=== PATIENT | male | born 1995 | race Caucasian/White ===

== ENCOUNTER 2018-08-31 19:52 | Inpatient (IN) | payer OTHER ==
[~2018-08-31] VITALS: Ht 170.2 cm; Wt 99.3 kg
[~2018-08-31 19:52] MED LIST changes: -ARMO250T4 PO; -CETI10TA22 PO; -CIPR500T94 PO; -FLUO40CA2 PO; -IOHEXOL 240 MG/ML 50ML VIAL. ONE; -IOHEXOL 240 MG/ML 50ML VIAL. PO ONE; -IOHEXOL 300 MG/ML 75 ML VIAL. IV ONE; -MELA3TAB2 PO; -METR500T PO; -ONDA4TAB7 PO; -PANT20TA58 PO; -RIZA10TA PO; -TOPI25TA7 PO; -TOPI50TA8 PO
[2018-08-31 20:15] VITALS: BP 136/62
[2018-08-31] MEDS ORDERED: PANT20TA58 PO (20:49)
[2018-08-31] MEDS ORDERED: TOPI25TA7 PO (20:49)
[2018-08-31] MEDS ORDERED: RIZA10TA PO (20:49)
[2018-08-31] MEDS ORDERED: CETI10TA22 PO (20:49)
[2018-08-31] MEDS ORDERED: TOPI50TA8 PO (20:49)
[2018-08-31] MEDS ORDERED: ONDA4TAB7 PO (20:49)
[2018-08-31] MEDS ORDERED: FLUO40CA2 PO (20:49)
[2018-08-31] MEDS ORDERED: ARMO250T4 PO (20:49)
[2018-08-31] MEDS ORDERED: MELA3TAB2 PO (21:04)
[2018-08-31] MEDS ORDERED: ONDANSETRON PF 4 MG/2 ML VIAL. IV PRN (21:30)
[2018-08-31] MEDS: IV NORMAL SALINE 1,000ML 1,000 ML IV SCH (21:43)
[2018-08-31] MEDS ORDERED: MELATONIN 3 MG TABLET PO PRN (22:00)
[2018-08-31] MEDS ORDERED: ONDANSETRON ODT 4 MG TAB.RAPDIS PO PRN (22:15)
[2018-08-31] MEDS ORDERED: NON FORMULARY ITEM (Ondansetron (Zofran Odt) 8 MG) PO PRN (22:15)
[2018-08-31] MEDS ORDERED: SUMAtriptan SUCCINATE 50 MG TABLET PO PRN (22:15)
[2018-08-31] MEDS ORDERED: ZOLPIDEM 5 MG TABLET. PO PRN (22:30)
[2018-08-31 22:31] LABS: INFLUENZA A PATIENT NEGATIVE (NEGATIVE); INFLUENZA B PATIENT NEGATIVE (NEGATIVE)
[2018-08-31 23:20] VITALS: BP 126/63
[2018-09-01 00:14] LABS: BACTERIA,URINE 0 /HPF (0-FEW); BILIRUBIN,URINE NEG (NEG); CLARITY,URINE CLEAR; COLOR,URINE YELLOW; GLUCOSE,URINE NEG (NEG); NITRITE,URINE NEG (NEG); RBC,URINE 0 /HPF (0-2); SQUAMOUS EPITHELIAL CELL,UR OCC /LPF; UROBILINOGEN,URINE 0.2 mg/dL (0.2 mg/dL); WBC,URINE RARE /HPF (0-4)
[2018-09-01] MEDS ORDERED: CIPROFLOXACIN HCL 500 MG TABLET PO SCH ×2 (00:15→06:00)
[2018-09-01 00:30] LABS: BASO # 0.1 x10^3/uL (0.0-0.2); BASO % 1 % (0-3); EOS # 0.1 x10^3/uL (0.0-0.7); EOS % 1 % (0-3); HEMATOCRIT 41.4 % (39.0-53.0); HEMOGLOBIN 14.4 g/dL (13.0-17.5); LYMPH # 1.7 x10^3/uL (1.0-4.8); LYMPH % 12 % (24-48); MEAN CORPUSCULAR HEMOGLOBIN 31 pg (25-35); MEAN CORPUSCULAR HGB CONC 35 g/dL (31-37); MEAN CORPUSCULAR VOLUME 88 fL (79-100); MONO % 7 % (0-9); NEUT # 10.9 x10^3uL (1.8-7.7); NEUT % 80 % (31-73); PLATELET COUNT 284 x10^3/uL (140-400); RED BLOOD COUNT 4.73 x10^6/uL (4.30-5.70); RED CELL DISTRIBUTION WIDTH 12.8 % (11.5-14.5); WHITE BLOOD COUNT 13.8 x10^3/uL (4.0-11.0)
[2018-09-01] MEDS: TOPIRAMATE 25 MG TABLET. PO SCH ×3 (00:37→21:09)
[2018-09-01] MEDS: ACETAMINOPHEN 500 MG TABLET PO PRN ×3 (00:37→14:55)
[2018-09-01 00:39] LABS: C REACTIVE PROTEIN 53.9 mg/L (0-3.3); GFR 92.6; POTASSIUM 3.5 mmol/L (3.5-5.1)
[2018-09-01] MEDS: IV NORMAL SALINE 1,000ML 1,000 ML IV SCH ×3 (05:05→17:30)
[2018-09-01 05:06] VITALS: BP 130/81
[2018-09-01 06:17] LABS: AMYLASE 49 U/L (25-115); LIPASE 163 U/L (73-393)
[2018-09-01] MEDS: CETIRIZINE HCL 10 MG TABLET PO SCH (08:05)
[2018-09-01] MEDS: FLUoxetine HCL 20 MG CAPSULE PO SCH (08:05)
[2018-09-01] MEDS: PANTOPRAZOLE 40 MG TABLET. PO SCH (08:05)
[2018-09-01] MEDS: ARMODAFINIL 250 MG PO SCH (09:05)
[2018-09-01 10:21] LABS: ALBUMIN 3.5 g/dL (3.4-5.0); DIRECT BILIRUBIN 0.2 mg/dL (0.0-0.2); TOTAL BILIRUBIN 0.5 mg/dL (0.2-1.0); TOTAL PROTEIN 7.4 g/dL (6.4-8.2)
[2018-09-01 10:36] VITALS: BP 135/76
[2018-09-01] MEDS ORDERED: KETOROLAC 30 MG/ML VIAL. IV PRN (13:00)
[2018-09-01 15:06] VITALS: BP 116/75
[2018-09-01 20:00] VITALS: BP 124/85
[2018-09-01] MEDS: LACTOBACILLUS RHAMNOSUS GG 1 CAPSULE. PO SCH (21:08)
[2018-09-01 23:27] VITALS: BP 120/77
[2018-09-02] MEDS: IV NORMAL SALINE 1,000ML 1,000 ML IV SCH ×2 (00:10→06:02)
--- NOTE | 2018-09-02 01:34 | PN ---
DATE: SUBJECTIVE: A 23-year-old male in with abdominal pain. A CT scan done as an outpatient that demonstrated colitis. He has been having some form of diarrhea as well. He had an elevated white count as well as C-reactive protein. The patient otherwise is resting fairly comfortably, required IV pain medication. OBJECTIVE: VITAL SIGNS: Blood pressure that of 124/85, respiratory rate 16, pulse 75. He has had a temperature up to 100.4. He is on metronidazole, Levaquin. LUNGS: Otherwise lungs diminished, but clear. CARDIOVASCULAR: Stable. ABDOMEN: Soft, diffuse tenderness primarily in the right mid quadrant area, slight guarding, no rebounding. Positive bowel sounds. We will continue on IV antibiotic therapy and continue to monitor him accordingly. Make further evaluation on him as indicated. IMPRESSION: Colitis, abdominal pain. PLAN: As above. JESUS TRUJILLO MD DR: SHAMEKA/vinay JOB#: [id number] / [id number]
[2018-09-02 05:36] VITALS: BP 127/75
[2018-09-02 06:11] LABS: BASO % 1 % (0-3); EOS # 0.2 x10^3/uL (0.0-0.7); EOS % 4 % (0-3); HEMOGLOBIN 13.3 g/dL (13.0-17.5); LYMPH # 1.7 x10^3/uL (1.0-4.8); LYMPH % 34 % (24-48); MEAN CORPUSCULAR HEMOGLOBIN 31 pg (25-35); MEAN CORPUSCULAR HGB CONC 35 g/dL (31-37); MEAN CORPUSCULAR VOLUME 88 fL (79-100); MONO # 0.6 x10^3/uL (0.0-1.1); MONO % 12 % (0-9); NEUT # 2.4 x10^3uL (1.8-7.7); NEUT % 49 % (31-73); PLATELET COUNT 259 x10^3/uL (140-400); RED BLOOD COUNT 4.33 x10^6/uL (4.30-5.70); RED CELL DISTRIBUTION WIDTH 12.3 % (11.5-14.5)
[2018-09-02 06:21] LABS: CALCIUM 8.6 mg/dL (8.5-10.1); GFR 92.6; POTASSIUM 3.7 mmol/L (3.5-5.1)
[2018-09-02] MEDS: PANTOPRAZOLE 40 MG TABLET. PO SCH (08:03)
[2018-09-02] MEDS: LACTOBACILLUS RHAMNOSUS GG 1 CAPSULE. PO SCH (08:03)
[2018-09-02] MEDS: ARMODAFINIL 250 MG PO SCH (08:03)
[2018-09-02] MEDS: TOPIRAMATE 25 MG TABLET. PO SCH (08:03)
[2018-09-02] MEDS: CETIRIZINE HCL 10 MG TABLET PO SCH (08:03)
[2018-09-02] MEDS: FLUoxetine HCL 20 MG CAPSULE PO SCH (08:03)
[2018-09-02 11:08] VITALS: BP 120/76
[2018-09-02] MEDS ORDERED: CIPR500T94 PO (11:49)
[2018-09-02] MEDS ORDERED: METR500T PO (11:49)
--- NOTE | 2018-09-02 12:26 | DS ---
DATE OF DISCHARGE: HOSPITAL COURSE: The patient came in with severe abdominal pain, elevated white count of 15,000. The patient had failed outpatient oral antibiotics and the patient made good progress with IV Flagyl and Levaquin. White count came down into range and he made good progress there. The patient otherwise his chemistries are basically stable. In any case, he made good progress. He will be followed up by a colonoscopy as an outpatient. IMPRESSION: Colitis, bladder wall thickening, some lymphadenopathy. Get colonoscopy as an outpatient. Soft diet for the next couple of weeks, decreased activity, MRAD, follow up accordingly. JESUS TRUJILLO MD DR: SHAMEKA/vinay JOB#: [id number] / [id number]
== END 2018-09-02 13:01 | disposition home or self-care (01) | DRG 392 ==
LOC: 1 SOUTH 19:52
PROVIDERS: ADMIT Family Medicine; ATTEND Family Medicine
PROC: 5A09357 Assistance with Respiratory Ventilation, Less than 24 Consecutive Hours, Continuous Positive Airway Pressure (ICD-10-PCS; principal; 2018-08-31)
DX: K52.9 Noninfective gastroenteritis and colitis, unspecified (principal); R59.1 Generalized enlarged lymph nodes; G43.909 Migraine, unspecified, not intractable, without status migrainosus; Z79.899 Other long term (current) drug therapy
CPT/HCPCS: 36415; 80048; 80076; 81001; 82150; 83605; 83690; 85025; 85379; 86140; 87040; 87045; 87177; 87493; 87804; 90471; 90756; J1885; J1956; J2405; J3490; J7030; Q2035

== ENCOUNTER → 2018-08-31 | Outpatient (CLI) | payer OTHER ==
[2016-07-14 01:54] VITALS: BP 129/42
[~2018-08-31] MED LIST: ARMO250T4 PO; CETI10TA22 PO; CIPR500T94 PO; FLUO40CA2 PO; IOHEXOL 240 MG/ML 50ML VIAL. ONE; IOHEXOL 240 MG/ML 50ML VIAL. PO ONE; IOHEXOL 300 MG/ML 75 ML VIAL. IV ONE; MELA3TAB2 PO; METR500T PO; ONDA4TAB7 PO; ONDA8TAB12 PO; PANT20TA58 PO; RIZA10TA PO; TOPI25TA7 PO; TOPI50TA8 PO
[2018-08-31 16:18] LABS: BASO # 0.1 x10^3/uL (0.0-0.2); BASO % 0 % (0-3); EOS # 0.2 x10^3/uL (0.0-0.7); EOS % 1 % (0-3); HEMATOCRIT 45.5 % (39.0-53.0); HEMOGLOBIN 15.9 g/dL (13.0-17.5); LYMPH # 1.7 x10^3/uL (1.0-4.8); LYMPH % 11 % (24-48); MEAN CORPUSCULAR HEMOGLOBIN 31 pg (25-35); MEAN CORPUSCULAR HGB CONC 35 g/dL (31-37); MEAN CORPUSCULAR VOLUME 87 fL (79-100); MONO % 7 % (0-9); NEUT # 12.6 x10^3uL (1.8-7.7); NEUT % 81 % (31-73); PLATELET COUNT 317 x10^3/uL (140-400); RED CELL DISTRIBUTION WIDTH 12.7 % (11.5-14.5); WHITE BLOOD COUNT 15.5 x10^3/uL (4.0-11.0)
[2018-08-31 16:20] LABS: C REACTIVE PROTEIN 28.8 mg/L (0-3.3); CALCIUM 9.4 mg/dL (8.5-10.1); CREATININE 1.1 mg/dL (0.7-1.3); POTASSIUM 4.2 mmol/L (3.5-5.1)
[2018-08-31 17:24] LABS: % EOS 2 % (0-5); % LYMPHS 13 % (24-48); % MONOS 7 % (0-10); % SEGS 78 % (35-66); PLT ESTIMATE ADEQUATE (ADEQUATE)
[2018-08-31 17:25] LABS: ANISOCYTOSIS SLIGHT
--- NOTE | 2018-08-31 17:45 | RAD ---
EXAM: CT Abdomen and Pelvis with IV contrast CLINICAL HISTORY: Gastroenteritis. COMPARISON: none TECHNIQUE: Helical CT of the abdomen and pelvis was performed following the administration of intravenous contrast. Axial, coronal and sagittal reformatted images were generated. PQRS compliance statement - One or more of the following individualized dose reduction techniques were utilized for this study: 1. Automated exposure control 2. Adjustment of the mA and/or kV according to patient size 3. Use of iterative reconstruction technique FINDINGS: Lower chest: Lung bases are clear Abdomen and Pelvis: 4 mm hypodense left hepatic lobe lesion is too small to accurately characterize. Hepatic hypoattenuation likely hepatic steatosis. Gallbladder is normal. No biliary ductal dilatation. Spleen is unremarkable. Adrenal glands and pancreas are unremarkable. Symmetric nephrograms. No focal renal lesion. No hydronephrosis. Diffuse bladder wall thickening likely cystitis. Appendix is normal. Mild thickening of the right colon. No small or large bowel dilatation. Mild colonic stool content. Focal nodular thickening of a segment of likely mesenteric fat of the left pelvis possibly omental infarct. 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 No abdominal or pelvic ascites. Aorta is normal in caliber. Bones: Osseous structures are unremarkable. No evidence for acute fracture or dislocation. IMPRESSION: 1. Mild thickening of the right colon is nonspecific but may be seen with colitis. 2. In addition right lower quadrant enlarged lymph nodes are seen. Although these may be reactive, infectious/inflammatory process or malignancy is not excluded. 3. Diffuse bladder wall thickening, nonspecific but may be seen with cystitis or related to underdistention. 4. Focal soft tissue density about a segment of fat in the left lower quadrant/pelvis may represent focal omental infarct. Electronically signed by: Ricky Cordova MD (08/31/2018 5:42 PM) [facility]
== END | disposition home or self-care (01) ==
LOC: CT 15:39
PROVIDERS: ATTEND Family Medicine
DX: K76.89 Other specified diseases of liver (principal); R59.0 Localized enlarged lymph nodes
CPT/HCPCS: 36415; 74177; 80048; 83690; 85007; 85025; 86140; Q9966; Q9967